=== PATIENT | male | born 2000 ===

== ENCOUNTER 2025-02-05 12:53 | Emergency (ER) | payer OTHER, SELFPAY ==
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
[2025-02-05 13:06] VITALS: BP 133/89; PULSE 108; RESP 16; TEMP 36.6; O2SAT 98; BMI 25.1
[2025-02-05] MEDS: tetanus-dipt-pertussis 0.5 mL SDV IM (13:11)
[2025-02-05 13:14] VITALS: BP 133/69; O2SAT 100
[2025-02-05] MEDS: lidocaine 2% INJ 20 mL INJECTION (13:24)
[2025-02-05 14:00] VITALS: BP 135/78; PULSE 99; RESP 16; O2SAT 97
== END 2025-02-05 14:01 | disposition home or self-care (01) ==
PROVIDERS: Emergency Provider Physician Assistant
DX: S51.012A Laceration without foreign body of left elbow, initial encounter (principal); V89.2XXA Person injured in unspecified motor-vehicle accident, traffic, initial encounter
CPT/HCPCS: 12004; 73080; 73130; 90715; 99283; J9999